=== PATIENT | female | born 1965 | race Caucasian/White ===

== ENCOUNTER → 2016-10-24 | Outpatient (CLI) | payer BC, OTHER ==
[~2016-10-24] MED LIST: FLVHFAUNK; GLC500 PO; LISI-729 PO; SNG10 PO; SYN50 PO; ZNTT/150 PO
--- NOTE | 2016-10-24 11:39 | DIAGNOSTIC IMAGING REPORT ---
LEFT ELBOW MIN 3 VIEWS CLINICAL HISTORY: LEFT ELBOW PAIN pain COMPARISON: None. DISCUSSION: The bones and joint spaces appear intact. There is no evidence of fracture, dislocation or bony disease. There is no evidence for soft tissue swelling. IMPRESSION: Negative study. Electronically signed by: Tapan Reyes M.D. 10/24/2016 11:37 AM Dictated Date/Time: 10/24/2016 11:36 AM
== END | disposition home or self-care (01) ==
LOC: C.RDSM 14:13
PROVIDERS: ATTEND Family Medicine
DX: M25.522 Pain in left elbow (principal)